=== PATIENT | male | born 1965 | race Caucasian/White ===

== ENCOUNTER 2017-08-30 07:12 | Day surgery (SDC) | payer OTHER ==
[2017-08-30] MEDS ORDERED: MIDAZOLAM 1 MG/ML 2 ML INJ ×2 (09:24→09:25)
[2017-08-30] MEDS ORDERED: FENTAnyl 50 MCG/ML VIAL (09:24)
== END 2017-08-30 12:21 | disposition home or self-care (01) ==
LOC: GIL 07:12
DX: Z12.11 Encounter for screening for malignant neoplasm of colon (principal); E78.5 Hyperlipidemia, unspecified; K64.8 Other hemorrhoids
CPT/HCPCS: 45378